=== PATIENT | female | born 1975 | race Two or more races ===

== ENCOUNTER 2021-12-30 17:16 | Emergency (ER) | payer OTHER ==
[~2021-12-30] VITALS: Ht 165.1 cm; Wt 71.0 kg
--- NOTE | 2021-12-30 18:14 | PHYS DOC ---
Past History Past Surgical History: Other Additional Past Surgical Histo: wisdom teeth Alcohol Use: None Adult General Chief Complaint Chief Complaint: CHEST PAIN HPI HPI Patient is an otherwise healthy 46-year-old female who presents with a chief complaint of 2 to 3 weeks of intermittent right-sided sharp chest pain with no obvious aggravating or alleviating factors. Denies any dyspnea on exertion, orthopnea, PND or edema. Denies any family history of early cardiac disease. Denies any cardiac disease history herself. Denies any alcohol, tobacco or drug use. Denies any recent traumas, travels, illness, fevers, abdominal pain, nausea, vomiting, diarrhea. Denies any dysuria, hematuria, diarrhea or blood in stool. Review of Systems Review of Systems Review of systems otherwise unremarkable except noted in HPI Allergies Allergies Allergies Coded Allergies Type Severity Reaction Last Updated Verified No Known Drug Allergies 12/30/21 No Physical Exam Physical Exam Constitutional: Well developed, well nourished, no acute distress, non-toxic appearance. [] HENT: Normocephalic, atraumatic, oropharynx moist, Eyes:conjunctiva normal, no discharge. [] Cardiovascular:Heart rate regular rhythm, no murmur [] Lungs & Thorax: Bilateral breath sounds clear to auscultation [] Abdomen: soft, no tenderness, no masses, no pulsatile masses. [] Skin: Warm, dry, no erythema, no rash. [] Extremities: No tenderness, no cyanosis, no clubbing, ROM intact, no edema. [] Neurologic: Alert and oriented X 3, normal motor function, normal sensory function, able to sit, stand and walk without issue no focal deficits noted. [] Psychologic: Affect normal, judgement normal, mood normal. [] Current Patient Data Vital Signs Vital Signs Date Time Temp Pulse Resp B/P (MAP) Pulse Ox O2 Delivery O2 Flow Rate FiO2 12/30/21 17:20 50 20 127/70 (89) 98 EKG EKG [] Radiology/Procedures Radiology/Procedures [] Heart Score C/O Chest Pain: Yes HEART Score for Chest Pain: HEART Score for Chest Pain Response (Comments) Value History Slighlty/Non-Suspicious 0 ECG Normal 0 Age >45 - < 65 1 Risk Factors No Risk Factors 0 Troponin < Normal Limit 0 Total 1 Risk Factors: Risk Factors: DM, Current or recent (<one month) smoker, HTN, HLP, family history of CAD, obesity. Risk Scores: Risk Factors: DM, Current or recent (<one month) smoker, HTN, HLP, family history of CAD, obesity. Course & Med Decision Making Course & Med Decision Making Patient is a 46-year-old female, otherwise healthy who presents with 2 to 3 weeks of intermittent sharp chest pain Vital signs not concerning. Physical exam noted above. EKG with normal rate, normal rhythm, no STEMI. Troponin not concerning. Chest x-ray nonconcerning. Asymptomatic in the ED. Low risk Wells. PERC negative. Heart score 0. Discussed all findings with patient. Advised to follow-up in the morning with primary care physician update on ED visit and set up a follow-up as soon as she can. Gave strict return precautions to the ED. Patient grateful, verbalized understanding and agreed with plan of discharge. Dragon Disclaimer Dragon Disclaimer This electronic medical record was generated, in whole or in part, using a voice recognition dictation system. Departure Departure: Impression: Primary Impression: Chest pain Disposition: HOME / SELF CARE / HOMELESS Condition: STABLE Referrals: NON,STAFF (PCP) SANDRO ESCOBAR Patient Instructions: Chest Pain (Nonspecific) Additional Instructions: You for coming into the emergency department tonight and allowing us to take care of you. Please read the attached information carefully go over things we discussed. Please follow-up as soon as you can with your primary care physician update on your ED visit and set up a follow-up as soon as possible for reevaluation and discussions of need for further evaluation and treatments including a stress test. Patient back to the ED with new or concerning symptoms as discussed. LUANNE GARCÍA MD Dec 30, 2021 18:14
--- NOTE | 2021-12-30 18:36 | EKG ---
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
--- NOTE | 2021-12-30 18:41 | RAD ---
Study: XR CHEST 1V Indication: Chest pain. Comparison: None. Findings: The cardiomediastinal silhouette and peggy are within normal limits. No localized airspace opacity, pl eural effusion or pneumothorax. Impression: No acute radiographic abnormality of the chest. Electronically signed by: MADALYN MAYS MD (12/30/2021 6:39 PM) [facility]
[2021-12-30] MEDS ORDERED: ACETAMINOPHEN 500 MG TABLET PO ONE (19:00)
[2021-12-30] MEDS ORDERED: diphenhydrAMINE 50 MG/ML VIAL IVP ONE (19:00)
[2021-12-30] MEDS ORDERED: KETOROLAC 15 MG/ML VIAL. IVP ONE (19:00)
[2021-12-30 19:06] VITALS: BP 118/76
== END 2021-12-30 19:25 | disposition home or self-care (01) ==
LOC: ER 17:16
DX: R07.89 Other chest pain (principal)
CPT/HCPCS: 36415; 71045; 81025; 84484; 93005; 96374; 96375; 99285; J1200; J1885